=== PATIENT | female | born 1940 | race Caucasian/White ===

== ENCOUNTER 2022-09-06 20:04 | Emergency (ER) | payer MEDICARE, OTHER ==
[~2022-09-06] VITALS: Ht 160 cm; Wt 58.5 kg
--- NOTE | ~2022-09-06 | EKG ---
[facility] [address] [facility] [place], [place] [address] Draft EKG completed, results pending confirmation PATIENT NAME: JO VILLANUEVA Electrocardiogram DATE OF : 42 PHYSICIAN: PRELIMINARY REPORT #: [id number] REPORT IS CONFIDENTIAL AND NOT TO BE RELEASED WITHOUT AUTHORIZATION
--- OUTSIDE RECORDS SUMMARY | 2022-09-07 03:08 | XMS ---
PreManage Notification: JO VILLANUEVA Security [employer] Events No recent Security Events currently on file CRITERIA MET - [facility] - 2 Visits in 30 Days CARE PROVIDERS Bakari Eden DO [facility] Current PHONE: Unknown Torie has no Care Guidelines for this patient. E.DTriny VISIT COUNT (12 MO.) [address] TOTAL 4 NOTE: Visits indicate total known visits. ED/UCC VISIT TRACKING (12 MO.) 09/06/2022 20:05 [facility] [place] TYPE: Emergency COMPLAINT: - ABDOMINAL PAIN 08/14/2022 11:51 [facility] [place] TYPE: Emergency DIAGNOSES: - Duodenal ulcer, unspecified as acute or chronic, without hemorrhage or perforation - ABD PAIN VOMITING 07/07/2022 18:18 [facility] [place] TYPE: Emergency DIAGNOSES: - Radiculopathy, lumbar region - BACK PAIN 07/03/2022 11:25 [facility] [place] TYPE: Emergency DIAGNOSES: - Pain in right hip - GENERAL INPATIENT VISIT TRACKING (12 MO.) No inpatient visits to display in this time frame [email or web address]
--- NOTE | 2022-09-09 20:43 | EKG ---
[facility] [address] [facility] [place] [address] Signed Normal sinus rhythm Nonspecific ST and T wave abnormality Abnormal ECG When compared with ECG of 06-SEP-2022 23:01, (Unconfirmed) No significant change was found Confirmed by Blanka Belcher MD () on 09/09/2022 8:43:36 PM Electronically Signed By: BLANKA BELCHER MD 09/09/222042 PATIENT NAME: JO VILLANUEVA Electrocardiogram DATE OF : 42 PHYSICIAN: BLANKA BELCHER MD REPORT #: [id number] REPORT IS CONFIDENTIAL AND NOT TO BE RELEASED WITHOUT AUTHORIZATION
== END 2022-09-07 03:05 | disposition home or self-care (01) ==
LOC: ED 20:04
DX: R10.13 Epigastric pain (principal); E86.0 Dehydration; I10 Essential (primary) hypertension; E03.9 Hypothyroidism, unspecified
CPT/HCPCS: 36415; 74176; 80053; 81001; 83540; 83550; 83690; 83735; 84484; 85025; 85060; 93005; 93010; 96361; 96374; 96375; 99284-25; C9113; J2270; J2405; J7121